=== PATIENT | male | born 1975 | race Caucasian/White ===

== ENCOUNTER 2023-12-27 08:26 | Emergency (ER) | payer OTHER, SELFPAY ==
[2023-12-27 08:27] VITALS: BP 125/101; PULSE 107; RESP 16; TEMP 36.4; O2SAT 97; BMI 22.5
--- NOTE | 2023-12-27 08:37 | EDS_ITS ---
HPI History of Present Illness Chief Complaint: Head Injury Informant: patient Narrative Narrative: Patient presents secondary to scalp laceration. Patient states that he was intoxicated last night and believes he fell. He woke this morning with a laceration across the top of his scalp. He denies headache or any pain. He presents for evaluation. He does report that his tetanus shot is up-to-date. [facility] Medical History (Updated 12/27/23 @ 08:[address] Caryn Chi MD) Anxiety and depression Diverticulitis Hypertension Allergy/AdvReac Type Severity Reaction Status Date / Time acetaminophen [From Percocet] AdvReac Mild Other Verified 12/27/23 08:28 oxycodone [From Percocet] AdvReac Mild Other Verified 12/27/23 08:28 Surgical History History of partial colectomy ROS ROS ED Constitutional Constitutional ED: Denies chills or fever(s) Eyes Eyes: Denies change in vision or discharge from eye(s) ENT ENT ED: Denies discharge from eye(s), rhinorrhea or sore throat Cardiovascular Cardiovascular: Denies chest pain or palpitations Respiratory/Chest Respiratory/Chest: Denies cough or dyspnea Gastrointestinal Gastrointestinal: Denies abdominal pain, nausea or vomiting Musculoskeletal Musculoskeletal: Denies back pain, extremity pain or neck pain Integumentary Reports other Details: Scalp laceration ; Denies Abrasions or rash Neurologic Neurologic: Denies headache(s) or weakness Psychiatric Psychiatric: Denies anxiety or depression Allergic/Immunologic Allergic/Immunologic ED: Denies lip swelling or urticaria EXAM Physical Exam Const Vital Signs: 12/27/23 08:27 Temperature 97.5 F L Temperature Source Temporal Pulse Rate 107 H Respiratory Rate 16 Blood Pressure 125/101 H Blood Pressure Mean 109 Pulse Ox 97 Oxygen Delivery Method Room Air Positive well nourished and well developed General Appearance ED: well developed HEENT HEENT Narrative: 6 cm laceration across the top of the scalp over the parietal region. No active bleeding at this time. There are also 2 linear abrasions approximately 2-1/2 cm on the right posterior parietal region. These are not full-thickness injuries. Eyes EOMs intact bilaterally Neck full ROM Neck Narrative: No C-spine tenderness. Chest Wall inspection of chest normal and palpation of chest normal Resp normal respiratory effort and clear to auscultation bilaterally Cardio regular rhythm Rate: regular rate GI non-tender Palpation: soft Back/Spine normal to inspection Extremity normal to inspection and full ROM Neuro oriented x3, moves all extremities and no sensory deficits noted Motor Exam: strength 5/5 throughout Skin Skin Narrative: Scalp injury as noted above. MDM MDM MDM Narrative Medical decision making narrative: Patient reports his tetanus shot is up-to-date. Given his head injury and his lack of recollection, CT scan of the head will be obtained to rule out any acute intracranial injury. Let is applied to the wound topically and wound will be cleansed and stapled. Patient refused head CT. He is alert and appropriate at this time. He understands that I cannot rule out intracranial bleeding, fracture, edema. He again reiterates that he does not want a head CT. Wound is cleansed. 7 nico were placed across the wound. Patient to follow-up in 5 to 7 days for staple removal. Discharge Plan Triage Chief Complaint: Head Injury ED Provider: Caryn Chi Dx/Rx/DC Orders Clinical Impression: Laceration of scalp Instructions: ED Laceration Scalp Stitches or Nico Activity Restrictions/Additional Instructions: You can follow-up at any local urgent care or emergency room to have your nico removed in 5 to 7 days. Disposition Disposition: Home, Self Care
[2023-12-27] MEDS: Lidocaine/Epi/Tetracaine 50 ML 1 APPLIC TOPICAL (08:44)
== END 2023-12-27 09:18 | disposition home or self-care (01) ==
LOC: ED 09:15
PROVIDERS: Emergency Provider Emergency Medicine; Visit Provider Emergency Medicine
DX: S01.01XA Laceration without foreign body of scalp, initial encounter (principal); W19.XXXA Unspecified fall, initial encounter; I10 Essential (primary) hypertension
CPT/HCPCS: 12002; 99284